=== PATIENT | female | born 1970 | race Caucasian/White ===

== ENCOUNTER 2017-08-01 20:49 | Emergency (ER) | payer MEDICAID ==
[~2017-08-01] VITALS: Ht 157.5 cm; Wt 85.5 kg
[~2017-08-01 20:49] MED LIST: ALBU6.7H INH; BECL7.3A INH; CLON-527 PO; CYCL-1 PO; DICY10CA88 PO; HYDR-569 PO; METH4TAB3 PO; METH500T PO; NAPR500T6 PO; ONDA4TAB12 PO; ONDA8TAB9 PO; TRAZ-146 PO; ZES10T PO
[2017-08-01] MEDS ORDERED: ketorolac trometh. 30mg/ml inj. IV ONE (21:15)
[2017-08-01] MEDS ORDERED: famotidine/PF 10 mg/ml inj IV ONE (21:15)
[2017-08-01 21:31] LABS: BASOPHILS # (AUTO) 0.1 X10'3 (0-0.2); BASOPHILS % (AUTO) 0.6 % (0-1); EOSINOPHILS # (AUTO) 0.1 X10'3 (0-0.9); EOSINOPHILS % (AUTO) 1.5 % (0-6); HEMATOCRIT 39.8 % (35.0-45.0); HEMOGLOBIN 13.5 g/dl (12.0-16.0); LYMPHOCYTES # (AUTO) 2.8 X10'3 (1.1-4.8); LYMPHOCYTES % (AUTO) 28.3 % (21-51); MEAN CORPUSCULAR HEMOGLOBIN 30.9 PG (27.0-31.0); MEAN CORPUSCULAR VOLUME 90.9 FL (78-98); MEAN PLATELET VOLUME 7.7 FL (7.4-10.4); MONOCYTES # (AUTO) 0.7 X10'3 (0-0.9); MONOCYTES % (AUTO) 7.3 % (2-12); NEUTROPHILS # (AUTO) 6.2 X10'3 (1.8-7.7); NEUTROPHILS % (AUTO) 62.3 % (42-75); PLATELET COUNT 251 X10'3 (140-440); RED BLOOD COUNT 4.37 X10'6 (4.20-5.60); RED CELL DISTRIBUTION WIDTH 13.9 % (11.5-14.5)
[2017-08-01 21:45] LABS: ALANINE AMINOTRANSFERASE 20 U/L (12-78); ALBUMIN 3.6 G/DL (3.4-5.0); ALBUMIN/GLOBULIN RATIO 1.1 (1.1-1.5); ALKALINE PHOSPHATASE 75 IU/L (46-116); ANION GAP 9 (8-16); ASPARTATE AMINO TRANSFERASE 14 U/L (10-37); BILIRUBIN,TOTAL 0.6 MG/DL (0.1-1.0); BLOOD UREA NITROGEN 20 MG/DL (7-18); BUN/CREATININE RATIO 18.7 (6.6-38.0); CALCIUM 8.9 MG/DL (8.5-10.1); CHLORIDE 105 MMOL/L (99-107); CREATININE 1.07 MG/DL (0.40-0.90); GLUCOSE 101 MG/DL (70-104); POTASSIUM 3.7 MMOL/L (3.5-5.1); SODIUM 139 MMOL/L (135-145); TOTAL CARBON DIOXIDE 25.4 MMOL/L (24-32); TOTAL PROTEIN 6.8 G/DL (6.4-8.2); eGFR 55 ML/MIN
[2017-08-01] MEDS ORDERED: ondansetron/PF 4mg/2ml inj IV ONE (21:45)
[2017-08-01 22:55] VITALS: BP 137/85
== END 2017-08-01 22:57 | disposition home or self-care (01) ==
LOC: ER 20:49
DX: R07.9 Chest pain, unspecified (principal); F41.9 Anxiety disorder, unspecified; R10.13 Epigastric pain; F15.10 Other stimulant abuse, uncomplicated; G43.909 Migraine, unspecified, not intractable, without status migrainosus; I10 Essential (primary) hypertension; G89.29 Other chronic pain; M79.7 Fibromyalgia; F32.9 Major depressive disorder, single episode, unspecified; F17.200 Nicotine dependence, unspecified, uncomplicated; Z90.710 Acquired absence of both cervix and uterus; Z98.51 Tubal ligation status; Z98.890 Other specified postprocedural states; Z88.8 Allergy status to other drugs, medicaments and biological substances; Z88.6 Allergy status to analgesic agent; Z79.899 Other long term (current) drug therapy
CPT/HCPCS: 36415; 80053; 84484; 85025; 93005; 96374; 96375; 96376; 99285; J1885; J2270; J2405; J3490

== ENCOUNTER 2017-09-09 10:23 | Emergency (ER) | payer MEDICAID ==
[~2017-09-09] VITALS: Ht 157.5 cm; Wt 100.0 kg
[2017-09-09] MEDS ORDERED: IBUP-1986 PO (12:05)
[2017-09-09] MEDS ORDERED: HYDR-3965 PO (12:05)
[2017-09-09] MEDS ORDERED: AMOX-422 PO (12:05)
[2017-09-09] MEDS ORDERED: ANBESOL TP (12:05)
[2017-09-09] MEDS: ibuprofen tablet 400 MG TABLET PO ONE (12:07)
[2017-09-09] MEDS: HYDROcodone/acetaminophen 10/325mg tab PO ONE (12:08)
[2017-09-09] MEDS: amox tr/potassium clavulanate 875/125mg TAB PO ONE (12:08)
[2017-09-09] MEDS ORDERED: ONDA4TAB12 PO (12:10)
[2017-09-09] MEDS: ondansetron 4mg rapidly disintigrating tab PO ONE (12:15)
[2017-09-09 12:17] VITALS: BP 137/84
== END 2017-09-09 12:19 | disposition home or self-care (01) ==
LOC: ER 10:23
DX: M26.622 Arthralgia of left temporomandibular joint (principal); K06.9 Disorder of gingiva and edentulous alveolar ridge, unspecified; G43.909 Migraine, unspecified, not intractable, without status migrainosus; I10 Essential (primary) hypertension; F17.200 Nicotine dependence, unspecified, uncomplicated; G89.29 Other chronic pain; Z98.51 Tubal ligation status; Z98.890 Other specified postprocedural states; F15.90 Other stimulant use, unspecified, uncomplicated; Z79.899 Other long term (current) drug therapy
CPT/HCPCS: 99284

== ENCOUNTER 2017-09-22 09:48 | Emergency (ER) | payer MEDICAID ==
[~2017-09-22] VITALS: Ht 157.5 cm; Wt 92.0 kg
[~2017-09-22 09:48] MED LIST changes: +ANBESOL TP; +HYDR-3965 PO; +IBUP-1986 PO
[2017-09-22] MEDS ORDERED: proCHLORperazine 10 MG/2 ml inj IM ONE (11:00)
[2017-09-22] MEDS ORDERED: diphenhydrAMINE 25mg capsule PO ONE (11:00)
[2017-09-22] MEDS ORDERED: diazepam 5mg tablet PO ONE (11:00)
[2017-09-22] MEDS ORDERED: ketorolac tromethamine 15mg/ml inj. IM ONE (11:00)
[2017-09-22 12:17] VITALS: BP 171/113
== END 2017-09-22 12:18 | disposition home or self-care (01) ==
LOC: ER 09:49
DX: G44.209 Tension-type headache, unspecified, not intractable (principal); M54.2 Cervicalgia; G89.29 Other chronic pain; G43.909 Migraine, unspecified, not intractable, without status migrainosus; I10 Essential (primary) hypertension; F15.10 Other stimulant abuse, uncomplicated; Z90.710 Acquired absence of both cervix and uterus; Z87.442 Personal history of urinary calculi; Z86.19 Personal history of other infectious and parasitic diseases; Z88.8 Allergy status to other drugs, medicaments and biological substances; Z79.899 Other long term (current) drug therapy
CPT/HCPCS: 96372; 99284; J0780; J1885; Q0163

== ENCOUNTER 2017-10-11 16:44 | Emergency (ER) | payer MEDICAID ==
[~2017-10-11] VITALS: Ht 157.5 cm; Wt 92.3 kg
[~2017-10-11 16:44] MED LIST changes: -ANBESOL TP
[2017-10-11] MEDS ORDERED: nitroGLYCERIN 0.4mg SUBLingual tab SL PRN (16:55)
[2017-10-11] MEDS ORDERED: normal saline 1000ML IV soln IVB ONE ×2 (17:00→18:00)
[2017-10-11] MEDS ORDERED: ondansetron/PF 4mg/2ml inj IV ONE (17:00)
[2017-10-11 17:31] LABS: BASOPHILS # (AUTO) 0.1 X10'3 (0-0.2); BASOPHILS % (AUTO) 0.6 % (0-1); EOSINOPHILS % (AUTO) 0.3 % (0-6); HEMATOCRIT 37.9 % (35.0-45.0); HEMOGLOBIN 13.1 g/dl (12.0-16.0); LYMPHOCYTES # (AUTO) 2.1 X10'3 (1.1-4.8); LYMPHOCYTES % (AUTO) 23.5 % (21-51); MEAN CORPUSCULAR HEMOGLOBIN 31.6 PG (27.0-31.0); MEAN CORPUSCULAR HGB CONC 34.6 % (33.0-36.5); MEAN CORPUSCULAR VOLUME 91.3 FL (78-98); MEAN PLATELET VOLUME 7.7 FL (7.4-10.4); MONOCYTES # (AUTO) 0.5 X10'3 (0-0.9); MONOCYTES % (AUTO) 5.8 % (2-12); NEUTROPHILS # (AUTO) 6.3 X10'3 (1.8-7.7); NEUTROPHILS % (AUTO) 69.8 % (42-75); PLATELET COUNT 219 X10'3 (140-440); RED BLOOD COUNT 4.15 X10'6 (4.20-5.60); RED CELL DISTRIBUTION WIDTH 13.6 % (11.5-14.5)
[2017-10-11 17:46] LABS: ALANINE AMINOTRANSFERASE 24 U/L (12-78); ALBUMIN 3.2 G/DL (3.4-5.0); ALKALINE PHOSPHATASE 57 IU/L (46-116); ANION GAP 6 (8-16); ASPARTATE AMINO TRANSFERASE 13 U/L (10-37); BILIRUBIN,TOTAL 0.6 MG/DL (0.1-1.0); BLOOD UREA NITROGEN 17 MG/DL (7-18); BUN/CREATININE RATIO 23.9 (6.6-38.0); CALCIUM 8.4 MG/DL (8.5-10.1); CHLORIDE 106 MMOL/L (99-107); CREATININE 0.71 MG/DL (0.40-0.90); GLUCOSE 92 MG/DL (70-104); POTASSIUM 3.6 MMOL/L (3.5-5.1); SODIUM 139 MMOL/L (135-145); TOTAL CARBON DIOXIDE 26.6 MMOL/L (24-32); TOTAL PROTEIN 6.4 G/DL (6.4-8.2); eGFR 88 ML/MIN
[2017-10-11 18:38] VITALS: BP 150/94
== END 2017-10-11 18:40 | disposition home or self-care (01) ==
LOC: ER 16:45
DX: R07.9 Chest pain, unspecified (principal); F41.9 Anxiety disorder, unspecified; I10 Essential (primary) hypertension; G89.29 Other chronic pain; F32.9 Major depressive disorder, single episode, unspecified; M79.7 Fibromyalgia; F17.200 Nicotine dependence, unspecified, uncomplicated; Z90.710 Acquired absence of both cervix and uterus
CPT/HCPCS: 36415; 71045; 80053; 84484; 85025; 93005; 96374; 99285; J2405; J7030

== ENCOUNTER 2018-01-16 11:45 | Emergency (ER) | payer MEDICAID ==
[~2018-01-16] VITALS: Ht 309.9 cm; Wt 89.0 kg
[~2018-01-16 11:45] MED LIST changes: -HYDR-3965 PO
[2018-01-16] MEDS ORDERED: dexamethasone 4mg tablet PO STA (12:13)
[2018-01-16] MEDS ORDERED: ketorolac trometh. 30mg/ml inj. IM STA (12:13)
[2018-01-16] MEDS ORDERED: ondansetron 4mg rapidly disintigrating tab PO STA (12:53)
[2018-01-16] MEDS ORDERED: HYDROcodone/acetaminophen 5mg/325mg tablet PO STA (12:53)
[2018-01-16] MEDS ORDERED: CYCL-1 PO ×2 (14:29→14:40)
[2018-01-16] MEDS ORDERED: ONDA8TAB9 PO (14:29)
[2018-01-16 14:37] VITALS: BP 174/97
[2018-01-16] MEDS ORDERED: LIDO1ADH TP (14:40)
== END 2018-01-16 14:53 | disposition home or self-care (01) ==
LOC: ER 11:45
DX: G89.29 Other chronic pain (principal); M54.9 Dorsalgia, unspecified; I10 Essential (primary) hypertension; G43.909 Migraine, unspecified, not intractable, without status migrainosus; F15.90 Other stimulant use, unspecified, uncomplicated; Z90.710 Acquired absence of both cervix and uterus; Z98.51 Tubal ligation status; Z98.890 Other specified postprocedural states; Z79.899 Other long term (current) drug therapy; Z88.8 Allergy status to other drugs, medicaments and biological substances
CPT/HCPCS: 96372; 99284; J1885; J8540

== ENCOUNTER 2018-01-22 21:16 | Emergency (ER) | payer MEDICAID ==
[~2018-01-22] VITALS: Ht 157.5 cm; Wt 90.0 kg
[~2018-01-22 21:16] MED LIST changes: +LIDO1ADH TP
[2018-01-22 21:53] LABS: BASOPHILS # (AUTO) 0.1 X10'3 (0-0.2); BASOPHILS % (AUTO) 0.8 % (0-1); EOSINOPHILS # (AUTO) 0.1 X10'3 (0-0.9); EOSINOPHILS % (AUTO) 1.3 % (0-6); HEMATOCRIT 39.6 % (35.0-45.0); LYMPHOCYTES # (AUTO) 2.5 X10'3 (1.1-4.8); LYMPHOCYTES % (AUTO) 29.3 % (21-51); MEAN CORPUSCULAR HEMOGLOBIN 31.5 PG (27.0-31.0); MEAN CORPUSCULAR HGB CONC 35.3 % (33.0-36.5); MEAN CORPUSCULAR VOLUME 89.3 FL (78-98); MONOCYTES # (AUTO) 0.7 X10'3 (0-0.9); MONOCYTES % (AUTO) 7.9 % (2-12); NEUTROPHILS # (AUTO) 5.2 X10'3 (1.8-7.7); NEUTROPHILS % (AUTO) 60.7 % (42-75); PLATELET COUNT 253 X10'3 (140-440); RED BLOOD COUNT 4.43 X10'6 (4.20-5.60); RED CELL DISTRIBUTION WIDTH 13.1 % (11.5-14.5); WHITE BLOOD COUNT 8.6 X10'3 (4.5-11.0)
[2018-01-22 22:05] LABS: INR 0.9 INR; PARTIAL THROMBOPLASTIN TIME 26 SECONDS (22-32); PROTHROMBIN TIME 9.4 SECONDS (9.0-12.0)
[2018-01-22 22:08] LABS: ALANINE AMINOTRANSFERASE 22 U/L (12-78); ALBUMIN 3.3 G/DL (3.4-5.0); ALBUMIN/GLOBULIN RATIO 0.9 (1.1-1.5); ALKALINE PHOSPHATASE 92 IU/L (46-116); ANION GAP 8 (8-16); ASPARTATE AMINO TRANSFERASE 13 U/L (10-37); BILIRUBIN,TOTAL 0.4 MG/DL (0.1-1.0); BLOOD UREA NITROGEN 21 MG/DL (7-18); BUN/CREATININE RATIO 21.9 (6.6-38.0); CALCIUM 9.2 MG/DL (8.5-10.1); CHLORIDE 105 MMOL/L (99-107); CREATININE 0.96 MG/DL (0.40-0.90); GLUCOSE 99 MG/DL (70-104); POTASSIUM 3.6 MMOL/L (3.5-5.1); SODIUM 141 MMOL/L (135-145); TOTAL CARBON DIOXIDE 27.7 MMOL/L (24-32); TOTAL PROTEIN 6.8 G/DL (6.4-8.2); eGFR 62 ML/MIN
[2018-01-22] MEDS ORDERED: aspirin 81mg tab.chew PO ONE (23:30)
[2018-01-22] MEDS: nitroGLYCERIN 0.4mg SUBLingual tab SL PRN (23:38)
[2018-01-23] MEDS: nitroGLYCERIN 0.4mg SUBLingual tab SL PRN (00:10)
[2018-01-23 00:12] VITALS: BP 197/93
[2018-01-23] MEDS ORDERED: LORazepam 1 MG tablet PO ONE (00:20)
== END 2018-01-23 02:17 | disposition home or self-care (01) ==
LOC: ER 21:16
DX: F41.9 Anxiety disorder, unspecified (principal); F32.9 Major depressive disorder, single episode, unspecified; I10 Essential (primary) hypertension; G43.909 Migraine, unspecified, not intractable, without status migrainosus; F15.10 Other stimulant abuse, uncomplicated; Z88.8 Allergy status to other drugs, medicaments and biological substances
CPT/HCPCS: 36415; 71045; 80053; 84484; 85025; 85610; 85730; 93005; 99285

== ENCOUNTER 2018-07-10 21:57 | Emergency (ER) | payer MEDICAID ==
[~2018-07-10] VITALS: Ht 157.5 cm; Wt 86.0 kg
[~2018-07-10 21:57] MED LIST changes: -TRAZ-146 PO; +TRAZ-219 PO
[2018-07-10 22:32] LABS: BASOPHILS % (AUTO) 0.6 % (0-1); EOSINOPHILS # (AUTO) 0.1 X10'3 (0-0.9); EOSINOPHILS % (AUTO) 1.4 % (0-6); HEMATOCRIT 36.6 % (35.0-45.0); HEMOGLOBIN 12.3 g/dl (12.0-16.0); LYMPHOCYTES # (AUTO) 2.7 X10'3 (1.1-4.8); LYMPHOCYTES % (AUTO) 36.2 % (21-51); MEAN CORPUSCULAR HEMOGLOBIN 29.8 PG (27.0-31.0); MEAN CORPUSCULAR HGB CONC 33.7 % (33.0-36.5); MEAN CORPUSCULAR VOLUME 88.4 FL (78-98); MEAN PLATELET VOLUME 8.2 FL (7.4-10.4); MONOCYTES # (AUTO) 0.6 X10'3 (0-0.9); MONOCYTES % (AUTO) 7.7 % (2-12); NEUTROPHILS % (AUTO) 54.1 % (42-75); PLATELET COUNT 264 X10'3 (140-440); RED BLOOD COUNT 4.14 X10'6 (4.20-5.60); RED CELL DISTRIBUTION WIDTH 13.8 % (11.5-14.5); WHITE BLOOD COUNT 7.4 X10'3 (4.5-11.0)
[2018-07-10 22:36] VITALS: BP 158/99
[2018-07-10 22:47] LABS: ALANINE AMINOTRANSFERASE 24 U/L (12-78); ALBUMIN 3.3 G/DL (3.4-5.0); ALKALINE PHOSPHATASE 105 IU/L (46-116); ANION GAP 8 (8-16); ASPARTATE AMINO TRANSFERASE 14 U/L (10-37); BILIRUBIN,TOTAL 0.3 MG/DL (0.1-1.0); BLOOD UREA NITROGEN 19 MG/DL (7-18); BUN/CREATININE RATIO 22.6 (6.6-38.0); CALCIUM 8.7 MG/DL (8.5-10.1); CHLORIDE 102 MMOL/L (99-107); CREATININE 0.84 MG/DL (0.40-0.90); GLUCOSE 96 MG/DL (70-104); POTASSIUM 3.5 MMOL/L (3.5-5.1); SODIUM 137 MMOL/L (135-145); TOTAL CARBON DIOXIDE 27.2 MMOL/L (24-32); TOTAL PROTEIN 6.6 G/DL (6.4-8.2); eGFR 73 ML/MIN
[2018-07-10 22:48] LABS: INR 0.9 INR; PARTIAL THROMBOPLASTIN TIME 29 SECONDS (22-32); PROTHROMBIN TIME 9.6 SECONDS (9.0-12.0)
[2018-07-10] MEDS ORDERED: LORazepam 1 MG tablet PO ONE (23:00)
[2018-07-10] MEDS ORDERED: ketorolac trometh. 30mg/ml inj. IV ONE (23:00)
== END 2018-07-10 23:44 | disposition home or self-care (01) ==
LOC: ER 21:58
DX: F41.9 Anxiety disorder, unspecified (principal); R07.89 Other chest pain; R42 Dizziness and giddiness; R06.02 Shortness of breath; R68.83 Chills (without fever); F51.5 Nightmare disorder; I10 Essential (primary) hypertension; G43.909 Migraine, unspecified, not intractable, without status migrainosus; G89.29 Other chronic pain; F15.90 Other stimulant use, unspecified, uncomplicated; Z72.820 Sleep deprivation; Z88.6 Allergy status to analgesic agent; Z88.8 Allergy status to other drugs, medicaments and biological substances; Z79.899 Other long term (current) drug therapy; Z87.440 Personal history of urinary (tract) infections; Z87.19 Personal history of other diseases of the digestive system; Z87.891 Personal history of nicotine dependence; Z98.890 Other specified postprocedural states; Z90.710 Acquired absence of both cervix and uterus; Z98.51 Tubal ligation status
CPT/HCPCS: 36415; 71045; 80053; 84484; 85025; 85610; 85730; 93005; 96374; 99284; J1885

== ENCOUNTER 2018-09-24 12:52 | Emergency (ER) | payer MEDICAID ==
[~2018-09-24] VITALS: Ht 157.5 cm; Wt 92.0 kg
[2018-09-24 13:01] VITALS: BP 186/116
[2018-09-24 13:25] LABS: CLARITY,URINE SLIGHTLY CLOUDY (Clear); COLOR,URINE ORANGE (Yellow)
[2018-09-24 13:27] LABS: UA COLLECTION TYPE CLN CATCH MIDSTREAM
[2018-09-24 13:32] LABS: BACTERIA,URINE 3+ /HPF (Neg); MUCUS STRANDS NONE SEEN /LPF (Neg); SQUAMOUS EPITHELIAL CELL,UR FEW /LPF (FEW); WBC CLUMPS,URINE FEW /HPF (NEGATIVE)
[2018-09-24] MEDS ORDERED: CEPH-572 PO (13:44)
== END 2018-09-24 14:06 | disposition home or self-care (01) ==
LOC: ER 12:52
DX: N39.0 Urinary tract infection, site not specified (principal); G43.909 Migraine, unspecified, not intractable, without status migrainosus; I10 Essential (primary) hypertension; G89.29 Other chronic pain; M54.9 Dorsalgia, unspecified; F12.90 Cannabis use, unspecified, uncomplicated; Z90.710 Acquired absence of both cervix and uterus; Z90.49 Acquired absence of other specified parts of digestive tract; Z88.8 Allergy status to other drugs, medicaments and biological substances
CPT/HCPCS: 81001; 87077; 87088; 87186; 99283

== ENCOUNTER 2019-05-09 09:46 | Emergency (ER) | payer MEDICAID ==
[~2019-05-09] VITALS: Ht 157.5 cm; Wt 100.0 kg
[~2019-05-09 09:46] MED LIST changes: -ALBU6.7H INH; +ALBU6.7H9 INH
[2019-05-09 09:58] VITALS: BP 174/102
[2019-05-09] MEDS ORDERED: ketorolac tromethamine 15mg/ml inj. IM ONE (10:25)
--- NOTE | 2019-05-09 10:36 | NUR ---
PT WALKED INTO LOBBY. WALKED IN INDEPENDENTLY TO TRIAGE THEN WALKED UNASSISTED FROM TRIAGE TO ROOM 9
[2019-05-09] MEDS ORDERED: CYCL-1 PO (11:23)
[2019-05-09] MEDS ORDERED: orphenadrine citrate 60mg/2ml inj. IM ONE (11:25)
--- NOTE | 2019-05-09 11:30 | NUR ---
PT CO PAIN 03/11 SHE STATED THAT SHE IS STILL IN PAIN NO RELIEVE FROM TORODOL INJ,INFORMED NOÉ AGUILERA NO NEW ORDERS NOTED ,PT STATED THAT SHE WANT HER PAPERWORK AND WANT TO LEAVE ,NOÉ AGUILERA AWARE BUT PT LFT WITHOUT HER PAPERWORK AND LFT THE ER AND I FOLLOWED THE PT OUTSIDE TO INFORM HER THAT SHE HAS ORDER FOR IM INJ NORFLEX ,PT REFUSED TO TAKE THE INJ AND STARTED CURSING AND YELLING IN THE ER PARKING LOT.NOTIFIED THE ASSISGNED NURSE BOAZ BERNABE RN.
[2019-05-24] MEDS ORDERED: CLIN-90 PO (17:44)
== END 2019-05-09 11:44 | disposition left against medical advice (07) ==
LOC: ER 09:47
DX: G89.29 Other chronic pain (principal); M54.41 Lumbago with sciatica, right side; M54.42 Lumbago with sciatica, left side; G43.909 Migraine, unspecified, not intractable, without status migrainosus; I10 Essential (primary) hypertension; M79.7 Fibromyalgia; F15.90 Other stimulant use, unspecified, uncomplicated; Z90.710 Acquired absence of both cervix and uterus; Z98.890 Other specified postprocedural states; Z98.51 Tubal ligation status; Z88.8 Allergy status to other drugs, medicaments and biological substances; Z88.6 Allergy status to analgesic agent; Z79.899 Other long term (current) drug therapy
CPT/HCPCS: 96372; 99283; J1885

== ENCOUNTER 2019-05-24 17:07 | Emergency (ER) | payer MEDICAID ==
[~2019-05-24] VITALS: Ht 157.5 cm; Wt 108.5 kg
[2019-05-24 17:09] VITALS: BP 151/111
[2019-05-24] MEDS ORDERED: CLIN-96 PO (17:44)
== END 2019-05-24 18:03 | disposition home or self-care (01) ==
LOC: ER 17:08
DX: K02.9 Dental caries, unspecified (principal); G43.909 Migraine, unspecified, not intractable, without status migrainosus; I10 Essential (primary) hypertension; G89.29 Other chronic pain; F41.9 Anxiety disorder, unspecified; F32.9 Major depressive disorder, single episode, unspecified; F17.200 Nicotine dependence, unspecified, uncomplicated; F15.90 Other stimulant use, unspecified, uncomplicated; Z88.6 Allergy status to analgesic agent; Z87.442 Personal history of urinary calculi; Z98.51 Tubal ligation status; Z98.890 Other specified postprocedural states; Z88.8 Allergy status to other drugs, medicaments and biological substances; Z79.2 Long term (current) use of antibiotics
CPT/HCPCS: 99283

== ENCOUNTER 2020-06-30 14:23 | Emergency (ER) | payer MEDICAID ==
[~2020-06-30] VITALS: Ht 157.5 cm; Wt 104.5 kg
[~2020-06-30 14:23] MED LIST changes: +CLIN-97 PO; -TRAZ-219 PO; +TRAZ-256 PO
[2020-06-30 14:44] VITALS: BP 153/100
== END 2020-06-30 15:56 | disposition home or self-care (01) ==
LOC: ER 14:24
DX: R05 Cough (principal); R42 Dizziness and giddiness; R09.81 Nasal congestion; Z20.828 Contact with and (suspected) exposure to other viral communicable diseases
CPT/HCPCS: 36415; 87502; 87503; 87635; 99283

== ENCOUNTER 2020-11-11 11:20 | Emergency (ER) | payer MEDICAID ==
[~2020-11-11] VITALS: Ht 157.5 cm; Wt 110.0 kg
[2020-11-11] MEDS ORDERED: morphine 4 MG/ML inj SYRINge IV ONE ×2 (11:35→15:20)
[2020-11-11] MEDS ORDERED: IOHEXOL 12MG/ML oral solution 500 ML BOTTLE PO ONE (11:35)
[2020-11-11] MEDS ORDERED: normal saline 1000ML IV soln IVB ONE (11:35)
[2020-11-11 12:00] LABS: BASOPHILS # (AUTO) 0.1 X10'3 (0-0.2); BASOPHILS % (AUTO) 0.7 % (0-1); EOSINOPHILS # (AUTO) 0.1 X10'3 (0-0.9); EOSINOPHILS % (AUTO) 1.8 % (0-6); HEMATOCRIT 43.7 % (35.0-45.0); HEMOGLOBIN 14.4 g/dl (12.0-16.0); LYMPHOCYTES # (AUTO) 2.4 X10'3 (1.1-4.8); LYMPHOCYTES % (AUTO) 30.5 % (21-51); MEAN CORPUSCULAR HEMOGLOBIN 30.3 PG (27.0-31.0); MEAN CORPUSCULAR VOLUME 91.6 FL (78-98); MEAN PLATELET VOLUME 7.6 FL (7.4-10.4); MONOCYTES # (AUTO) 0.6 X10'3 (0-0.9); MONOCYTES % (AUTO) 7.5 % (2-12); NEUTROPHILS # (AUTO) 4.6 X10'3 (1.8-7.7); NEUTROPHILS % (AUTO) 59.5 % (42-75); PLATELET COUNT 291 X10'3 (140-440); RED BLOOD COUNT 4.77 X10'6 (4.20-5.60); RED CELL DISTRIBUTION WIDTH 13.6 % (11.5-14.5); WHITE BLOOD COUNT 7.8 X10'3 (4.5-11.0)
[2020-11-11 12:09] LABS: ALANINE AMINOTRANSFERASE 34 U/L (12-78); ALBUMIN 3.7 G/DL (3.4-5.0); ALKALINE PHOSPHATASE 89 IU/L (46-116); ANION GAP 9 (8-16); ASPARTATE AMINO TRANSFERASE 18 U/L (10-37); BILIRUBIN,TOTAL 0.4 MG/DL (0.1-1.0); BLOOD UREA NITROGEN 16 MG/DL (7-18); CALCIUM 8.9 MG/DL (8.5-10.1); CHLORIDE 104 MMOL/L (99-107); GLUCOSE 86 MG/DL (70-104); LIPASE 104 U/L (73-393); POTASSIUM 4.5 MMOL/L (3.5-5.1); SODIUM 139 MMOL/L (135-145); TOTAL CARBON DIOXIDE 25.8 MMOL/L (24-32); TOTAL PROTEIN 7.3 G/DL (6.4-8.2); eGFR 76 ML/MIN
[2020-11-11 13:06] LABS: CLARITY,URINE SLIGHTLY CLOUDY (Clear); COLOR,URINE STRAW (Yellow); GLUCOSE, URINE NEGATIVE (Neg); KETONES,URINE NEGATIVE (Neg); NITRITES, URINE NEGATIVE (Neg); OCCULT BLOOD,URINE SMALL (Neg); PROTEIN,URINE NEGATIVE (Neg); UROBILINOGEN,URINE 0.2 E.U/dL (0.2-1.0)
[2020-11-11 13:14] LABS: UA COLLECTION TYPE CLN CATCH MIDSTREAM
[2020-11-11 13:16] LABS: LEUKOCYTE ESTERASE ,URINE NEGATIVE (Neg)
[2020-11-11 13:17] LABS: BACTERIA,URINE 2+ /HPF (Neg); MUCUS STRANDS NONE SEEN /LPF (Neg); SQUAMOUS EPITHELIAL CELL,UR MODERATE /LPF (FEW); WBC,URINE 0-4 /HPF (0-4)
[2020-11-11 13:18] LABS: RBC,URINE 0-2 /HPF (0-2)
[2020-11-11] MEDS ORDERED: ketorolac trometh. 30mg/ml inj. IV ONE (13:50)
[2020-11-11] MEDS ORDERED: ONDA4TAB6 PO (14:49)
[2020-11-11] MEDS ORDERED: HYDR-3965 PO (14:49)
[2020-11-11 15:36] VITALS: BP 134/99
== END 2020-11-11 15:39 | disposition home or self-care (01) ==
LOC: ER 11:21
DX: R10.31 Right lower quadrant pain (principal); R10.32 Left lower quadrant pain; E66.9 Obesity, unspecified; G43.909 Migraine, unspecified, not intractable, without status migrainosus; I10 Essential (primary) hypertension; G89.29 Other chronic pain; M79.7 Fibromyalgia; F15.90 Other stimulant use, unspecified, uncomplicated; Z90.710 Acquired absence of both cervix and uterus; Z98.51 Tubal ligation status; Z98.890 Other specified postprocedural states; Z79.899 Other long term (current) drug therapy; Z88.8 Allergy status to other drugs, medicaments and biological substances; Z88.6 Allergy status to analgesic agent
CPT/HCPCS: 36415; 74176; 76830; 76856; 80053; 81001; 83690; 85025; 93976; 96361; 96374; 96375; 96376; 99285; J1885; J2270; J7030

== ENCOUNTER 2021-07-02 19:01 | Emergency (ER) | payer MEDICAID ==
[~2021-07-02] VITALS: Ht 157.5 cm; Wt 105.0 kg
[~2021-07-02 19:01] MED LIST changes: +ONDA4TAB6 PO
[2021-07-02 19:14] VITALS: BP 137/82
[2021-07-02 21:00] LABS: CLARITY,URINE SLIGHTLY CLOUDY (Clear); COLOR,URINE ORANGE (Yellow); GLUCOSE, URINE 100 mg/dl (Neg); KETONES,URINE TRACE mg/dl (Neg); LEUKOCYTE ESTERASE ,URINE NEGATIVE (Neg); NITRITES, URINE POSITIVE (Neg); OCCULT BLOOD,URINE MODERATE (Neg); PROTEIN,URINE 30 mg/dl (Neg)
[2021-07-02 21:09] LABS: UA COLLECTION TYPE CLN CATCH MIDSTREAM
[2021-07-02] MEDS ORDERED: CEPH-585 PO (21:17)
[2021-07-02] MEDS ORDERED: cephalexin 250mg capsule PO ONE (21:20)
[2021-07-02 21:26] LABS: BACTERIA,URINE 1+ /HPF (Neg); CAL OXALATE CRYSTALS 3+ /HPF (NEGATIVE); SQUAMOUS EPITHELIAL CELL,UR MODERATE /LPF (FEW)
== END 2021-07-02 21:35 | disposition home or self-care (01) ==
LOC: ER 19:02
DX: N39.0 Urinary tract infection, site not specified (principal); M54.42 Lumbago with sciatica, left side; R30.9 Painful micturition, unspecified; R10.2 Pelvic and perineal pain; G43.909 Migraine, unspecified, not intractable, without status migrainosus; I10 Essential (primary) hypertension; G89.29 Other chronic pain; F41.9 Anxiety disorder, unspecified; F32.9 Major depressive disorder, single episode, unspecified; F15.90 Other stimulant use, unspecified, uncomplicated; Z86.19 Personal history of other infectious and parasitic diseases; Z87.442 Personal history of urinary calculi; Z90.710 Acquired absence of both cervix and uterus; Z98.51 Tubal ligation status; Z98.890 Other specified postprocedural states; Z88.8 Allergy status to other drugs, medicaments and biological substances; Z88.6 Allergy status to analgesic agent; Z79.2 Long term (current) use of antibiotics; Z79.899 Other long term (current) drug therapy
CPT/HCPCS: 81001; 87088; 99283

== ENCOUNTER → 2023-09-22 | Emergency (ER) | payer MEDICAID ==
[~2023-09-22] VITALS: Ht 157.5 cm; Wt 121.1 kg
[~2023-09-22] MED LIST changes: +ALBU6.7H14 INH; -ALBU6.7H9 INH; +METH-798 PO; +PRED20TA PO; +ketorolac tromethamine 15mg/ml inj. IM ONE
[2023-09-22 17:42] VITALS: TEMP 98.1
[2023-09-22 19:35] LABS: BASOPHILS # (AUTO) 0.1 X10'3 (0-0.2); BASOPHILS % (AUTO) 0.7 % (0-1); EOSINOPHILS # (AUTO) 0.1 X10'3 (0-0.9); HEMATOCRIT 39.6 % (35.0-45.0); HEMOGLOBIN 13.4 g/dl (12.0-16.0); LYMPHOCYTES # (AUTO) 2.8 X10'3 (1.1-4.8); LYMPHOCYTES % (AUTO) 32.8 % (21-51); MEAN CORPUSCULAR HEMOGLOBIN 30.8 PG (27.0-31.0); MEAN CORPUSCULAR HGB CONC 33.8 g/dL (33.0-36.5); MEAN CORPUSCULAR VOLUME 91.2 FL (78-98); MEAN PLATELET VOLUME 7.9 FL (7.4-10.4); MONOCYTES # (AUTO) 0.5 X10'3 (0-0.9); MONOCYTES % (AUTO) 6.1 % (2-12); NEUTROPHILS # (AUTO) 5.1 X10'3 (1.8-7.7); NEUTROPHILS % (AUTO) 59.4 % (42-75); PLATELET COUNT 299 X10'3 (140-440); RED BLOOD COUNT 4.34 X10'6 (4.20-5.60); RED CELL DISTRIBUTION WIDTH 13.9 % (11.5-14.5); WHITE BLOOD COUNT 8.6 X10'3 (4.5-11.0)
[2023-09-22 19:49] LABS: BILIRUBIN,TOTAL 0.5 MG/DL (0.1-1.0); CHLORIDE 104 MMOL/L (99-107); SODIUM 140 MMOL/L (135-145)
[2023-09-22 20:43] LABS: URINE HCG NEGATIVE (NEG)
[2023-09-22 20:46] LABS: BILIRUBIN,URINE NEGATIVE (Neg); CLARITY,URINE SLIGHTLY CLOUDY (Clear); COLOR,URINE YELLOW (Yellow); GLUCOSE, URINE NEGATIVE (Neg); KETONES,URINE NEGATIVE (Neg); LEUKOCYTE ESTERASE ,URINE NEGATIVE (Neg); NITRITES, URINE NEGATIVE (Neg); OCCULT BLOOD,URINE TRACE-INTACT (Neg); PROTEIN,URINE NEGATIVE (Neg); UROBILINOGEN,URINE 0.2 E.U/dL (0.2-1.0)
[2023-09-22] MEDS: HYDROcodone/acetaminophen 10/325mg tab PO ONE (20:56)
[2023-09-22] MEDS: ondansetron 4mg rapidly disintigrating tab PO ONE (20:56)
[2023-09-22] MEDS: ketorolac trometh inj. 60 MG/2 ML VIAL IM ONE (21:04)
[2023-09-22 21:09] LABS: UA COLLECTION TYPE CLN CATCH MIDSTREAM
[2023-09-22 21:11] LABS: BACTERIA,URINE FEW /HPF (Neg); MUCUS STRANDS FEW /LPF (Neg); RBC,URINE 0-2 /HPF (0-2); SQUAMOUS EPITHELIAL CELL,UR FEW /LPF (FEW); WBC,URINE 0-4 /HPF (0-4)
[2023-09-22 23:45] VITALS: BP 154/98; PULSE 99; RESP 18; O2SAT 98
[2023-09-23 16:08] LABS: ANION GAP 13 (8-16); GLUCOSE 76 MG/DL (70-104); POTASSIUM 4.5 MMOL/L (3.5-5.1)
[2023-09-23 16:09] LABS: BLOOD UREA NITROGEN 21 MG/DL (7-18); BUN/CREATININE RATIO 19.3 (10.0-20.0); CREATININE 1.09 MG/DL (0.40-0.90); TOTAL CARBON DIOXIDE 22.7 MMOL/L (24-32); eCRCL 47 ML/MIN; eGFR 53 ML/MIN
[2023-09-23 16:10] LABS: ALBUMIN 3.9 G/DL (3.4-5.0); ALBUMIN/GLOBULIN RATIO 1.1 (1.1-1.5); CALCIUM 8.9 MG/DL (8.5-10.1); TOTAL PROTEIN 7.4 G/DL (6.4-8.2)
[2023-09-23 16:11] LABS: ALANINE AMINOTRANSFERASE 36 U/L (12-78); ALKALINE PHOSPHATASE 79 IU/L (46-116); ASPARTATE AMINO TRANSFERASE 26 U/L (10-37); LIPASE 29 U/L (16-77)
== END | disposition home or self-care (01) ==
LOC: ER 17:16
DX: M54.14 Radiculopathy, thoracic region (principal); I10 Essential (primary) hypertension; G89.29 Other chronic pain; M54.9 Dorsalgia, unspecified; F31.9 Bipolar disorder, unspecified; F15.10 Other stimulant abuse, uncomplicated; Z88.8 Allergy status to other drugs, medicaments and biological substances; Z88.6 Allergy status to analgesic agent; Z79.899 Other long term (current) drug therapy
CPT/HCPCS: 36415; 74176; 80053; 81001; 81025; 83690; 85025; 96372; 99285; J1885

== ENCOUNTER 2024-05-24 16:54 | Emergency (ER) | payer MEDICAID ==
[~2024-05-24] VITALS: Ht 157.5 cm; Wt 121.0 kg
[~2024-05-24 16:54] MED LIST changes: +ONDA-243 PO; -ONDA4TAB12 PO; -PRED20TA PO; -ketorolac tromethamine 15mg/ml inj. IM ONE
[2024-05-24 17:05] VITALS: TEMP 97.5
[2024-05-24 18:38] LABS: BILIRUBIN,URINE NEGATIVE (Neg); CLARITY,URINE SLIGHTLY CLOUDY (Clear); COLOR,URINE YELLOW (Yellow); GLUCOSE, URINE NEGATIVE (Neg); KETONES,URINE NEGATIVE (Neg); LEUKOCYTE ESTERASE ,URINE NEGATIVE (Neg); NITRITES, URINE NEGATIVE (Neg); OCCULT BLOOD,URINE TRACE-INTACT (Neg); PH,URINE 5.5 (4.8-8.0); PROTEIN,URINE NEGATIVE (Neg); UROBILINOGEN,URINE 0.2 E.U/dL (0.2-1.0)
[2024-05-24 18:45] LABS: SQUAMOUS EPITHELIAL CELL,UR MANY /LPF (FEW); UA COLLECTION TYPE CLN CATCH MIDSTREAM
[2024-05-24 18:46] LABS: MUCUS STRANDS MODERATE /LPF (Neg); WBC,URINE 0-4 /HPF (0-4)
[2024-05-24 18:47] LABS: BACTERIA,URINE 2+ /HPF (Neg)
[2024-05-24 19:37] LABS: APTT 27 SECONDS (22-32); PROTHROMBIN TIME 10.7 SECONDS (9.0-12.0)
[2024-05-24 19:50] LABS: BASOPHILS % (AUTO) 0.3 % (0-1); EOSINOPHILS # (AUTO) 0.1 X10'3 (0-0.9); EOSINOPHILS % (AUTO) 1.2 % (0-6); HEMATOCRIT 40.3 % (35.0-45.0); HEMOGLOBIN 13.8 g/dl (12.0-16.0); LYMPHOCYTES # (AUTO) 2.8 X10'3 (1.1-4.8); LYMPHOCYTES % (AUTO) 34.6 % (21-51); MEAN CORPUSCULAR HEMOGLOBIN 31.4 PG (27.0-31.0); MEAN CORPUSCULAR HGB CONC 34.4 g/dL (33.0-36.5); MEAN CORPUSCULAR VOLUME 91.5 FL (78-98); MEAN PLATELET VOLUME 8.5 FL (7.4-10.4); MONOCYTES # (AUTO) 0.5 X10'3 (0-0.9); MONOCYTES % (AUTO) 6.3 % (2-12); NEUTROPHILS # (AUTO) 4.6 X10'3 (1.8-7.7); NEUTROPHILS % (AUTO) 57.6 % (42-75); PLATELET COUNT 335 X10'3 (140-440); RED BLOOD COUNT 4.41 X10'6 (4.20-5.60); RED CELL DISTRIBUTION WIDTH 13.8 % (11.5-14.5)
[2024-05-24] MEDS: ondansetron/PF 4mg/2ml inj IV ONE (19:54)
[2024-05-24] MEDS: morphine 4 MG/ML inj SYRINge IV ONE (19:54)
[2024-05-24 20:59] LABS: ALANINE AMINOTRANSFERASE 32 U/L (12-78); ALBUMIN 3.7 G/DL (3.4-5.0); ALBUMIN/GLOBULIN RATIO 1.1 (1.1-1.5); ALKALINE PHOSPHATASE 87 IU/L (46-116); ANION GAP 12 (8-16); ASPARTATE AMINO TRANSFERASE 17 U/L (10-37); BILIRUBIN,TOTAL 0.9 MG/DL (0.1-1.0); BLOOD UREA NITROGEN 16 MG/DL (7-18); BUN/CREATININE RATIO 16.8 (10.0-20.0); CALCIUM 9.4 MG/DL (8.5-10.1); CHLORIDE 105 MMOL/L (99-107); CREATININE 0.95 MG/DL (0.40-0.90); GLUCOSE 87 MG/DL (70-104); LIPASE 26 U/L (16-77); SODIUM 139 MMOL/L (135-145); TOTAL CARBON DIOXIDE 22.5 MMOL/L (24-32); TOTAL PROTEIN 7.2 G/DL (6.4-8.2); eCRCL 54 ML/MIN; eGFR 62 ML/MIN
[2024-05-24 21:08] LABS: URINE AMPHETAMINE SCREEN NEGATIVE (Neg); URINE BARBITUATE SCREEN NEGATIVE (Neg); URINE BENZODIAZEPINES SCREEN NEGATIVE (Neg); URINE CANNABINOID SCREEN NEGATIVE (Neg); URINE COCAINE SCREEN NEGATIVE (Neg); URINE METHADONE SCREEN NEGATIVE (Neg); URINE OPIATE SCREEN NEGATIVE (Neg); URINE PHENCYCLIDINE SCREEN NEGATIVE (Neg)
[2024-05-24] MEDS ORDERED: ONDA-243 PO (22:21)
[2024-05-24] MEDS ORDERED: DICY20TA17 PO (22:21)
[2024-05-24] MEDS: HYDROcodone/acetaminophen 5mg/325mg tablet PO ONE (22:42)
[2024-05-24 22:48] VITALS: BP 145/79; PULSE 108; RESP 16; O2SAT 98
== END 2024-05-24 22:50 | disposition home or self-care (01) ==
LOC: ER 16:55
DX: R10.31 Right lower quadrant pain (principal); M79.7 Fibromyalgia; I10 Essential (primary) hypertension; G89.29 Other chronic pain; M54.9 Dorsalgia, unspecified; G43.909 Migraine, unspecified, not intractable, without status migrainosus; F15.90 Other stimulant use, unspecified, uncomplicated; F41.9 Anxiety disorder, unspecified; F32.A Depression, unspecified; Z87.442 Personal history of urinary calculi; Z98.51 Tubal ligation status; Z88.8 Allergy status to other drugs, medicaments and biological substances; Z79.2 Long term (current) use of antibiotics; Z79.52 Long term (current) use of systemic steroids; Z79.899 Other long term (current) drug therapy; Z90.710 Acquired absence of both cervix and uterus; Z98.890 Other specified postprocedural states
CPT/HCPCS: 36415; 74176; 76700; 80053; 80305; 81001; 83605; 83690; 84145; 85025; 85610; 85730; 87040; 96374; 96375; 99285; J2270; J2405

== ENCOUNTER 2024-12-16 21:31 | Emergency (ER) | payer BC, MEDICAID ==
[~2024-12-16] VITALS: Ht 157.5 cm; Wt 118.2 kg
[~2024-12-16 21:31] MED LIST changes: +DICY20TA17 PO; +NAPR-1480 PO; -NAPR500T6 PO
--- NOTE | 2024-12-16 22:12 | RADIOLOGY REPORT ---
Clinical History RIGHT KNEE PAIN Comparison None Technique: Three radiographs were submitted for review. Without Contrast JOSEPH GUILLAUME, [id number] FINDINGS: No evidence for acute fracture, dislocation or subluxation. Alignment within normal limits. No radiopaque foreign body identified. No significant soft tissue swelling. IMPRESSION: No acute radiographic findings. This report was electronically signed by Boby Sosa MD on 12/16/2024 10:09:14 PM.
--- NOTE | 2024-12-16 23:24 | Physician Documentation ---
History of Present Illness ~ Chief Complaint: Knee Pain Stated Complaint: R KNEE PAIN Time Seen by MD: 23:12 OK to notify your PCP?: Yes Primary Medical Doctor: DANIELLE Source: patient Mode of Arrival: POV Exam Limitations: no limitations HPI Ruchi is a 54-year-old female presenting to the emergency department for right knee pain after she tried getting into bed tonight. She reports that her knee bent sideways and then she felt a sharp burning/tearing sensation. She has a history of a recent left knee surgery for which she takes a half tablet of 10 mg Kilgore prior to bedtime which she did have tonight. She denies any hip pain or ankle pain. Tetanus witin 5 years: Yes Medication Reconciliation Allergies: Coded Allergies: buprenorphine (Unverified Allergy, Unknown, 12/16/24) gabapentin (Verified Allergy, Unknown, hives, 12/16/24) tramadol HCl (Verified Adverse Reaction, Unknown, VERTIGO AND VOMITING, 12/16/24) Scheduled Beclomethasone Dipropionate (Qvar 40 MCG INHALER), 2 PUFFS INH BID Clindamycin HCL* (Clindamycin HCL*), 1 CAP PO Q6H Clonazepam* (Klonopin*), 1 MG PO HS, (Reported) Dicyclomine HCl (Dicyclomine HCl), 1 TAB PO Q8H Dicyclomine Hcl* (Bentyl*), 1 CAP PO TID Ibuprofen (Ibuprofen), 1 TAB PO Q8H Lisinopril* (Zestril*), 10 MG PO DAILY, (Reported) Methocarbamol (Robaxin), 1 TAB PO Q8H Methocarbamol (Methocarbamol), 1 TAB PO Q8H Methylprednisolone (Medrol), 1 DOSPAK PO UD ONDANSETRON ODT 4mg tablet (Ondansetron Odt), 4 MG PO Q8H Ondansetron (Zofran Odt), 1 TAB PO Q8H Ondansetron (Zofran Odt), 4 MG PO QID Ondansetron Hcl (Zofran), 1 TAB PO Q6H Trazodone HCl (Trazodone HCl), 1 TABLET PO HS, (Reported) Scheduled PRN Albuterol Sulfate (Proventil Hfa), 1-2 PUFFS INH Q4H PRN for SOB or wheezing, (Reported) Albuterol Sulfate (Proventil Hfa), 2 PUFFS INH QID PRN for COUGH OR WHEEZE Cyclobenzaprine* (Cyclobenzaprine*), 1 TABLET PO Q8H PRN for muscle spasms Cyclobenzaprine* (Cyclobenzaprine*), 1 TABLET PO Q8H PRN for muscle spasms Cyclobenzaprine* (Cyclobenzaprine*), 1 TABLET PO Q8H PRN for muscle spasms Cyclobenzaprine* (Cyclobenzaprine*), 1 TABLET PO Q8H PRN for muscle spasms Cyclobenzaprine* (Cyclobenzaprine*), 1 TABLET PO Q8H PRN for muscle spasms Hydrocodone Bit/Acetaminophen (Kilgore 5-325 Tablet), 1 EACH PO BID PRN, (Reported) Lidocaine/Menthol (Lidopatch), 1 EACH TP PRN PRN for pain Naproxen (Naproxen), 1 TABLET PO BID PRN for pain ONDANSETRON ODT 4mg tablet (Ondansetron Odt), 1 TABLET PO Q6H PRN for nausea/vomiting ONDANSETRON ODT 4mg tablet (Ondansetron Odt), 1 TABLET PO Q6H PRN for nausea/vomiting ONDANSETRON ODT 4mg tablet (Ondansetron Odt), 1 TABLET PO Q6H PRN for nausea/vomiting Past Medical History Past Medical History: Migraine, Hypertension, Hepatitis C, Hernia, Kidney Stones, Chronic Back Pain, Fibromyalgia, Anxiety, Depression Past Surgical History: hysterectomy, orthopedic surgeries, tubal ligation, other Other Past Surgical History: hernia repair Alcohol Use: None Drug Use: methamphetamine Lives with: Family Lives In: Home Occupation: employed Review of Systems All Other Systems at this time: Reviewed and Negative Physical Exam Vital Signs: RN Vital Signs have been reviewed: Yes, Temperature: 98.4, Source: Oral, Heart Rate: 100, Respiratory Rate: 20, BP: 170/94, Pulse Oximetry: 97, Weight: 118.180 Pulse Oximetry Reflects: adequate oxygenation Physical Exam General: Alert, no apparent distress. HEENT: PERRL, EOMI, no injection, moist mucous membranes. Neck: Full range of motion. Respiratory: Lungs clear, no respiratory distress. Chest: No accessory muscle use. Cardiovascular: Regular rate and rhythm, no murmurs. Gastrointestinal: Soft, nontender, nondistended. Bowels sounds present. Extremities: Decreased range of motion in the right knee due to pain. Patient is able to stand and ambulate with assistance. Edema around right knee. Unable to perform specific knee exam is to check the stability of ligaments due to swelling and her pain. Right hip is nontender. Right ankle is nontender. Neurologic: Oriented x4. Psychiatric: Normal mood and affect. Skin: Normal color, warm and dry. No edema, no ecchymosis. Progress Results/Orders Reviewed/noted all lab results: Yes Results/Orders Orders - TITA BYRD JAILKEEPER Ortho Orders (12/16/24 ) Vital Signs 12/16/24 12/17/24 21:33 00:11 Temp 98.4 97.9 Pulse 100 106 Resp 20 16 B/P (MAP) 170/94 150/99 Pulse Ox 97 100 EKG/XRAY/CT/US/VASC/MRI Bone/Soft Tissue X-Ray (Ext.) : Additional Comment Right knee X-ray as interpreted by me; no joint effusion, no acute fracture, no soft tissue swelling, no dislocation, or foreign body. Medical Decision Making Findings Ruchi is a 54-year-old female with right knee pain when trying to get into bed tonight. She has already taken a half tablet of her 10 mg Kilgore prior to the accident and does not wish to take anymore pain medication at this time. We have provided her with a knee immobilizer and crutches. I did a limited knee range of motion exam due to her pain and the swelling. The knee x-ray shows no acute fracture. We discussed the limitation of x-ray as it does not show the ligaments, tendons, muscle, soft tissue structures for which she may need an outpatient MRI to look into this further. She should follow up with her primary care provider within the next 3 days and receive a referral to Orthopedics. She agrees with this plan and states she will take the Kilgore she already has for her other knee and ibuprofen at home for pain. I have educated her to keep her leg elevated above the heart to help reduce the swelling and can use heat/ice for pain. Departure Disposition: HOME / SELF CARE / HOMELESS Impression: Primary Impression: Knee pain Condition: Stable Discharge Instructions: Acute Knee Pain, Adult Additional Instructions: Follow up with her primary care provider within the next 3 days to receive a referral to Orthopedics. Wear the knee immobilizer until you see orthopedics and use the crutches. Continue to use your home home Kilgore prescription and ibuprofen for pain relief. Elevate the leg above the level of the heart to help with swelling and use ice/heat for pain relief. Departure Forms: Excuse form Work or School Excuse beginning now through the following date: December 20, 2024 Referrals: NO PRIMARY CARE PROVIDER (PCP) Education Educated: Patient Educated regarding: diagnosis, treatment, prognosis, need for follow up Signature Scribe Signature: . Attestation: Scribed for Tita Byrd Brusher Tender by Tita Mckeon NP . 12/17/24 00:57 TITA BYRDP December 16, 2024 23:24
[2024-12-17 00:11] VITALS: BP 150/99; PULSE 106; RESP 16; TEMP 97.9; O2SAT 100
== END 2024-12-17 00:13 | disposition home or self-care (01) ==
LOC: ER 21:31
DX: M25.561 Pain in right knee (principal); I10 Essential (primary) hypertension; M79.7 Fibromyalgia; F15.90 Other stimulant use, unspecified, uncomplicated; G43.909 Migraine, unspecified, not intractable, without status migrainosus; F41.9 Anxiety disorder, unspecified; F32.A Depression, unspecified; Z90.710 Acquired absence of both cervix and uterus; Z98.890 Other specified postprocedural states; Z88.8 Allergy status to other drugs, medicaments and biological substances; Z79.899 Other long term (current) drug therapy; Z87.442 Personal history of urinary calculi
CPT/HCPCS: 29505; 29515; 73564; 99283